=== PATIENT | female | born 1945 | race American Indian/Alaskan Native ===

== ENCOUNTER 2018-04-24 20:17 | Emergency (ER) | payer OTHER ==
--- OUTSIDE RECORDS SUMMARY | 2018-04-24 20:19 | XMS REPORT | Summary of Care ---
:1945 Author Name Rachel Price M.A. Address Unavailable Unavailable , Care Team Providers Name Role Phone Rachel Price M.A. Unavailable Unavailable Functional Status Name Dates Details Functional status health issues are not documented Status: Name Dates Details Cognitive status health issues are not documented Status: Problems Name Dates Details Arthritis of left hip (716.95, M16.12) Status: Active S/P right unicompartmental knee replacement (V43.65, Z96.651) Status: Active Right hip pain (719.45, M25.551) Status: Active Lumbar pain (724.2, M54.5) Status: Active Medications Name Dates Details Medications not documented Allergies and Adverse Reactions Name Dates Details Allergy history not documented Status: Procedures Procedure Dates Details Procedures not documented Immunization Name Dates Details Immunizations not documented Social History Name Dates Details Unknown if ever smoked Vital Signs Date Test Result Details No Known Vitals to report Results Date Description Value Details Results not documented Plan of Care Name Dates Details Planned Observations Planned Goals not documented Instructions Name Dates Details Instructions not documented Encounters Appointment; DONALD WHITESIDE M.D. On: 23-Sep-2017 8:30 Encounter Diagnosis: Problem not documented
[2018-04-24 20:59] LABS: Absolute Lymphocytes (CBC) 2.3 K/uL (0.7-4.9); Absolute Monocytes 0.7 K/uL (0.1-1.3); Absolute Neutrophil 5.1 K/uL (1.8-8.0); Basophils % 0.4 % (0-1.3); Eosinophils % 2.1 % (0-4.4); Hematocrit 41.8 % (36.0-45.0); Lymphocytes % 28.3 % (15.3-44.8); MPV 9.6 fL (7.6-11.3); Monocytes % 8.1 % (3.3-12.3); RBC Red Blood Cell Count 4.97 M/uL (3.86-4.86)
[2018-04-24 21:05] LABS: Protime INR 0.98
[2018-04-24 21:17] LABS: ALT/SGPT 31 U/L (12-78); AST/SGOT 20 U/L (15-37); Albumin 3.5 g/dL (3.4-5.0); Alkaline Phosphatase 128 U/L (45-117); BUN Blood Urea Nitrogen 14 mg/dL (7-18); Bicarbonate 24 mmol/L (21-32); Bilirubin Total 0.2 mg/dL (0.2-1.0); Glucose Level 131 mg/dL (74-106); Magnesium 2.2 mg/dL (1.8-2.4); NT PRO-BNP 99 pg/mL (<125); Potassium 3.9 mmol/L (3.5-5.1); Protein, Total 7.4 g/dL (6.4-8.2); Sodium Level 142 mmol/L (136-145); Troponin (Emerg Dept Use Only) < 0.02 ng/mL (0.0-0.045)
--- NOTE | 2018-04-24 21:37 | RAD REPORT ---
EXAM DESCRIPTION: [facility] Single View04/24/2018 9:11 pm CLINICAL HISTORY: Chest pain COMPARISON: none FINDINGS: The lung bases are hazy. Upper lobes appear clear. The heart is mildly enlarged IMPRESSION: Lung bases are hazy probably secondary to overlying soft tissue. Infiltrates can also aly ve this appearance. PA and lateral chest series would be helpful for further evaluation
[2018-04-25] MEDS ORDERED: MAGNE/ALUM HYDROXD 30 ML UCUP ONE (00:42)
[2018-04-25] MEDS ORDERED: MORPHINE 4 MG/ML SYR ONE (00:43)
[2018-04-25] MEDS ORDERED: LIDOCAINE VISCOUS 2% SOLN 15 ML UDC ONE (00:43)
[2018-04-25] MEDS ORDERED: ONDANSETRON 4 MG/2 ML VIAL ONE (00:43)
--- NOTE | 2018-04-25 00:58 | ER ---
Nurse's Notes [facility] Emergency Department Name: Sabas Chavez Age: 72 yrs Sex: Female : 1945 Arrival Date: 04/24/2018 Time: 20:20 Bed 5 Private MD: Diagnosis: Pain in right arm Presentation: 04/24 20:37 Presenting complaint: Patient states: "I am having right arm pain and swelling as well jd3 as indigestion.". Transition of care: patient was not received from another setting of care. Onset of symptoms was April 24, 2018. Risk Assessment: Do you want to hurt yourself or someone else? Patient reports no desire to harm self or others. Initial Sepsis Screen: Does the patient meet any 2 criteria? No. Patient's initial sepsis screen is negative. Does the patient have a suspected source of infection? No. Patient's initial sepsis screen is negative. Care prior to arrival: None. 20:37 Method Of Arrival: Ambulatory jd3 20:37 Acuity: BECKY 3 jd3 Historical: - Allergies: 20:41 No Known Allergies; jd3 - Home Meds: 20:41 omeprazole 40 mg Oral cpDR [Active]; Synthroid 50 mcg Oral tab [Active]; Vitamin D Oral jd3 [Active]; aspirin 81 mg Oral chew [Active]; Tradjenta 5 mg oral tab [Active]; atorvastatin 10 mg oral tab [Active]; ProAir HFA inhalation inhalation [Active]; lansoprazole 30 mg oral cpDR [Active]; Albuterol Inhl [Active]; - PMHx: 20:41 Thyroid problem; Diabetes - NIDDM; jd3 - PSHx: 20:41 Cholecystectomy; right knee; jd3 - Immunization history:: Adult Immunizations up to date. - Social history:: Smoking status: Patient/guardian denies using tobacco. - Ebola Screening: : Patient negative for fever greater than or equal to 101.5 degrees Fahrenheit, and additional compatible Ebola Virus Disease symptoms. Screenin:51 Abuse screen: Denies threats or abuse. Denies injuries from another. Nutritional aj screening: No deficits noted. Tuberculosis screening: No symptoms or risk factors identified. Fall Risk None identified. Assessment: 20:51 General: Appears in no apparent distress. comfortable, Behavior is calm, cooperative, aj appropriate for age. Pain: Complains of pain in anterior aspect of right upper chest and right arm. Neuro: Level of Consciousness is awake, alert, obeys commands, Oriented to person, place, time, situation, Appropriate for age. Respiratory: Airway is patent Respiratory effort is even, unlabored, Respiratory pattern is regular, symmetrical. Derm: Skin is intact, is healthy with good turgor, Skin is pink, warm \\T\\ dry. normal. Musculoskeletal: Reports pain in anterior aspect of right upper chest and right arm. 22:14 Reassessment: Patient appears in no apparent distress at this time. Patient and/or jd3 family updated on plan of care and expected duration. Pain level reassessed. Patient is alert, oriented x 3, equal unlabored respirations, skin warm/dry/pink. report received from Michelle GRIMM. 04/25 00:28 Reassessment: Patient appears in no apparent distress at this time. No changes from [facility] previously documented assessment. Patient and/or family updated on plan of care and expected duration. Pain level reassessed. Patient is alert, oriented x 3, equal unlabored respirations, skin warm/dry/pink. 01:22 Reassessment: Patient appears in no apparent distress at this time. Patient and/or jd3 family updated on plan of care and expected duration. Pain level reassessed. Patient is alert, oriented x 3, equal unlabored respirations, skin warm/dry/pink. Patient states feeling better. Vital Signs: 04/24 20:41 BP 157 / 77; Pulse 96; Resp 18 S; Temp 98.0(O); Pulse Ox 95% on R/A; Weight 83.01 kg j (R); Height 5 ft. 2 in. (157.48 cm) (R); Pain 8/10; 22:30 BP 135 / 73; Pulse 85; Resp 19 S; Pulse Ox 99% on R/A; jd3 04/25 00:29 BP 139 / 70; Pulse 72; Resp 17 S; Pulse Ox 97% on R/A; jd3 04/24 20:41 Body Mass Index 33.47 (83.01 kg, 157.48 cm) j ED Course: 04/24 20:20 Patient arrived in ED. ds1 20:24 Tomy Graham MD is Attending Physician. ps1 20:38 Triage completed. jd3 20:42 Arm band placed on. jd3 20:51 Michelle Ying, RN is Primary Nurse. aj 20:51 Patient has correct armband on for positive identification. Bed in low position. aj 20:51 Inserted saline lock: 22 gauge in left antecubital area, using aseptic technique. Blood aj collected. 21:11 XRAY Chest (1 view) In Process Unspecified. EDMS 22:00 CT completed. Patient moved to CT via stretcher. Patient moved back from CT. vm2 22:36 CT Chest For PE Angio In Process Unspecified. EDMS 23:45 Ultrasound completed. Patient tolerated well. Notified MACHINE PACK ASSEMBLER/PA robyn. sg3 23:46 US Extremity Venous Unilateral Ltd In Process Unspecified. EDMS 04/25 01:20 No provider procedures requiring assistance completed. IV discontinued, intact, jd3 bleeding controlled, No redness/swelling at site. Pressure dressing applied. Administered Medications: 00:41 Drug: GI Cocktail without - (Maalox Suspension 30 ml, Lidocaine Liquid 2 % 15 jd3 ml) Route: PO; 01:23 Follow up: Response: No adverse reaction jd3 00:43 Drug: morphine 4 mg Route: IVP; Site: right antecubital; jd3 01:23 Follow up: Response: No adverse reaction jd3 00:43 Drug: Zofran 4 mg Route: IVP; Site: right antecubital; jd3 01:23 Follow up: Response: No adverse reaction jd3 Outcome: 00:57 Discharge ordered by . ps1 01:21 Discharged to home ambulatory, with family. jd3 01:21 Condition: stable 01:21 Discharge instructions given to patient, family, Instructed on discharge instructions, follow up and referral plans. medication usage, Demonstrated understanding of instructions, follow-up care, medications, Prescriptions given X 4. 01:24 Patient left the ED. jd3 Signatures: Dispatcher [employer] EDOH Michelle Ying, Jojo Talbot RN dsSaray Fernandez 2 Mohsen Lu RN RN jd3 Singer, Phillip, MD MD ps1 Godinez, Sarah sg3 Corrections: (The following items were deleted from the chart) 00:44 00:29 BP 131 / 68; Pulse 72bpm; Resp 17bpm; Spontaneous; Pulse Ox 97% RA; jd3 jd3
--- NOTE | 2018-04-25 00:58 | EDPHYS ---
Physician Documentation [facility] Name: Sabas Chavez Age: 72 yrs Sex: Female : 1945 Arrival Date: 04/24/2018 Time: 20:20 Bed 5 Private MD: ED Physician Tomy Graham HPI: 04/24 21:13 This 72 yrs old Other Female presents to ER via Ambulatory with complaints of Arm Pain. ps1 21:13 patient onset this morning upon awakening. Atraumatic. States pain is described as dull ps1 and throbbing. Pain rated as moderate. Associated with reflux. No recent travel. Arm has some swelling. No chest pain. . Historical: - Allergies: 20:41 No Known Allergies; jd3 - Home Meds: 20:41 omeprazole 40 mg Oral cpDR [Active]; Synthroid 50 mcg Oral tab [Active]; Vitamin D Oral jd3 [Active]; aspirin 81 mg Oral chew [Active]; Tradjenta 5 mg oral tab [Active]; atorvastatin 10 mg oral tab [Active]; ProAir HFA inhalation inhalation [Active]; lansoprazole 30 mg oral cpDR [Active]; Albuterol Inhl [Active]; - PMHx: 20:41 Thyroid problem; Diabetes - NIDDM; jd3 - PSHx: 20:41 Cholecystectomy; right knee; jd3 - Immunization history:: Adult Immunizations up to date. - Social history:: Smoking status: Patient/guardian denies using tobacco. - Ebola Screening: : Patient negative for fever greater than or equal to 101.5 degrees Fahrenheit, and additional compatible Ebola Virus Disease symptoms. ROS: 21:23 Constitutional: Negative for fever, chills, and weight loss, Eyes: Negative for injury, ps1 pain, redness, and discharge, Cardiovascular: Negative for chest pain, palpitations, and edema, Respiratory: Negative for shortness of breath, cough, wheezing, and pleuritic chest pain, Skin: Negative for injury, rash, and discoloration, Neuro: Negative for headache, weakness, numbness, tingling, and seizure. 21:23 Abdomen/GI: Positive for reflux. 21:23 MS/extremity: Positive for pain, of the right arm and anterior aspect of right upper chest. Exam: 21:23 Constitutional: This is a well developed, well nourished patient who is awake, alert, ps1 and in no acute distress. Head/Face: Normocephalic, atraumatic. Eyes: Pupils equal round and reactive to light, extra-ocular motions intact. Lids and lashes normal. Conjunctiva and sclera are non-icteric and not injected. ENT: Nares patent. No nasal discharge, no septal abnormalities noted. Tympanic membranes are normal and external auditory canals are clear. Oropharynx with no redness, swelling, or masses, exudates, or evidence of obstruction, uvula midline. Mucous membranes moist. Cardiovascular: Regular rate and rhythm. No gallops, murmurs, or rubs. Normal PMI, no JVD. No pulse deficits. Respiratory: Lungs have equal breath sounds bilaterally, clear to auscultation and percussion. No rales, rhonchi or wheezes noted. No increased work of breathing, no retractions or nasal flaring. Abdomen/GI: Soft, non-tender, with normal bowel sounds. No distension or tympany. No guarding or rebound. No evidence of tenderness throughout. Skin: Warm, dry with normal turgor. Normal color with no rashes, no lesions, and no evidence of cellulitis. MS/ Extremity: Pulses equal, no cyanosis. Neurovascular intact. Full, normal range of motion. Neuro: Awake and alert, GCS 15, oriented to person, place, time, and situation. Cranial nerves II-XII grossly intact. Sensory grossly intact. Vital Signs: 20:41 BP 157 / 77; Pulse 96; Resp 18 S; Temp 98.0(O); Pulse Ox 95% on R/A; Weight 83.01 kg jd3 (R); Height 5 ft. 2 in. (157.48 cm) (R); Pain 8/10; 22:30 BP 135 / 73; Pulse 85; Resp 19 S; Pulse Ox 99% on R/A; jd3 04/25 00:29 BP 139 / 70; Pulse 72; Resp 17 S; Pulse Ox 97% on R/A; jd3 04/24 20:41 Body Mass Index 33.47 (83.01 kg, 157.48 cm) jd3 MDM: 04/24 20:34 Patient medically screened. ps1 04/25 01:06 Data reviewed: vital signs, nurses notes, lab test result(s), radiologic studies, CT ps1 scan, doppler, and as a result, I will discharge patient. Counseling: I had a detailed discussion with the patient and/or guardian regarding: the historical points, exam findings, and any diagnostic results supporting the discharge/admit diagnosis, lab results, radiology results, the need for outpatient follow up, with PCP. Medication response: morphine markedly relieved the patient's pain. Symptoms have improved. 04/24 20:34 Order name: CBC with Diff; Complete Time: 21:12 04/24 20:34 Order name: Magnesium; Complete Time: : ps1 04/24 20:34 Order name: NT PRO-BNP; Complete Time: :04/24 20:34 Order name: PT-INR; Complete Time: :04/24 20:34 Order name: Troponin (emerg Dept Use Only); Complete Time: : ps1 04/24 20:34 Order name: CMP; Complete Time: : [facility] 04/24 20:34 Order name: XRAY Chest (1 view); Complete Time: 21:56 ps1 04/24 20:34 Order name: EKG; Complete Time: 20:37 ps1 04/24 20:34 Order name: DD; Complete Time: :04/24 21:30 Order name: CT Chest For PE Angio 04/24 22:53 Order name: US Extremity Venous Unilateral Ltd 04/24 20:34 Order name: Cardiac monitoring; Complete Time: 20:54 ps1 04/24 20:34 Order name: EKG - Nurse/Tech; Complete Time: 20:54 ps1 04/24 20:34 Order name: IV Saline Lock; Complete Time: 20:55 [facility] 04/24 20:34 Order name: Labs collected and sent; Complete Time: 20:55 ps1 04/24 20:34 Order name: O2 Per Protocol; Complete Time: 20:55 [facility] 04/24 20:34 Order name: O2 Sat Monitoring; Complete Time: 20:55 ps1 EC/19 20:41 Rate is 88 beats/min. Rhythm is regular. QRS [place] is Normal. AL interval is normal. QRS ps1 interval is normal. QT interval is normal. No Q waves. T waves are Normal. No ST changes noted. Clinical impression: Normal ECG. Interpreted by me. Administered Medications: 04/25 00:41 Drug: GI Cocktail without - (Maalox Suspension 30 ml, Lidocaine Liquid 2 % 15 jd3 ml) Route: PO; 01:23 Follow up: Response: No adverse reaction jd3 00:43 Drug: morphine 4 mg Route: IVP; Site: right antecubital; jd3 01:23 Follow up: Response: No adverse reaction jd3 00:43 Drug: Zofran 4 mg Route: IVP; Site: right antecubital; jd3 01:23 Follow up: Response: No adverse reaction jd3 Disposition: 04/25/18 00:57 Discharged to Home. Impression: Pain in right arm. - Condition is Stable. - Discharge Instructions: Musculoskeletal Pain, Pain Without a Known Cause. - Prescriptions for Anaprox DS 550 mg Oral Tablet - take 1 tablet by ORAL route every 12 hours As needed; 20 tablet. Robaxin 500 mg Oral Tablet - take 2 tablet by ORAL route every 6 hours As needed; 40 tablet. Medrol (Peter) 4 mg Oral Tablets, Dose Pack - take 1 tablet by ORAL route as directed - follow package instructions; 1 packet. simethicone - take 180 milligram by ORAL route 4 times per day; 100 capsule. - Medication Reconciliation Form, Thank You Letter, Antibiotic Education, Prescription Opioid Use form. - Follow up: Private Physician; When: 48 Hours; Reason: Further diagnostic work-up, Recheck today's complaints, Continuance of care, Re-evaluation by your physician. Follow up: Emergency Department; When: As needed; Reason: Worsening of condition. - Problem is new. - Symptoms have improved. Signatures: Dispatcher [employer] Mohsen Silva RN RN jTomy Shelton MD MD ps1 Corrections: (The following items were deleted from the chart) 04/24 21:28 21:13 patient onset this morning upon awakening. Atraumatic. . ps1 ps1 04/25 01:24 00:57 04/25/2018 00:57 Discharged to Home. Impression: Pain in right arm. Condition is jd3 Stable. Forms are Medication Reconciliation Form, Thank You Letter, Antibiotic Education, Prescription Opioid Use. Follow up: Private Physician; When: 48 Hours; Reason: Further diagnostic work-up, Recheck today's complaints, Continuance of care, Re-evaluation by your physician. Follow up: Emergency Department; When: As needed; Reason: Worsening of condition. Problem is new. Symptoms have improved. ps1
--- NOTE | 2018-04-25 08:11 | RAD REPORT ---
EXAM DESCRIPTION: US - Extremity Venous Uni Ltd - 04/24/2018 11:46 pm CLINICAL HISTORY: Right arm pain and swelling COMPARISON: None. TECHNIQUE: Real-time sonographic evaluation of the right upper extremity deep venous systems was per formed. FINDINGS: Normal compressibility, flow augmentation, phasic flow and spontaneous flow are identified in the right upper extremity axillary, brachial deep venous system. Basilic and cephalic veins also clear. Deep veins of the wrist are clear. Internal jugular and subclavian veins are normal as well. IMPRESSION: No DVT in the right upper extremity.
--- NOTE | 2018-04-25 08:32 | RAD REPORT ---
EXAM DESCRIPTION: CT - Chest For Pe Angio - 04/24/2018 10:36 pm CLINICAL HISTORY: Right-sided chest pain, elevated D-dimer. A preliminary report was provided at the time of the study and reviewed prior to final report. COMPARISON: Chest films same date TECHNIQUE: Dynamically enhanced 3 mm thick images of the chest were obtained during administration o f approximately 150mL Isovue 370 IV contrast. Coronal and oblique MIP reconstruction images were gene rated and reviewed. Exam utilizes a protocol to evaluate the pulmonary arterial tree. All CT scans are performed using dose optimization technique as appropriate and may include automated exposure control or mA/KV adjustment according to patient size. FINDINGS: No pulmonary emboli are identified. The aorta as imaged shows no acute or suspicious finding. Minimal aortic calcifications are present. Patient has little identifiable coronary artery calcifications. No pericardial thickening or effusion . No focal mass or consolidation. Scarring and minimal atelectasis changes are present. Some minimal aly zy ground-glass opacities are present probably atelectasis rather than an acute infectious process. N o pleural effusion or pleural thickening. No mediastinal or hilar suspicious masses. No chest wall masses or abnormal axillary lymphadenopathy. Thoracic spine degenerative changes are present. No acute process suspected. IMPRESSION: No pulmonary emboli identified. No other significant or suspicious findings.Full findings detailed in the body of the report.
--- NOTE | 2018-04-26 11:48 | EKG ---
Test Date: 2018-04-24 Test Time: 20:41:33 Office Services Assistant: PATRICIA MEASUREMENT RESULTS: Intervals: Rate: 88 AR: 132 QRSD: 70 QT: 366 QTc: 442 [place]: P: 62 AR: 132 QRS: 53 T: 63 INTERPRETIVE STATEMENTS: Normal sinus rhythm Normal ECG No previous ECG available for comparison Electronically Signed On 04-26-18 11:43:18 INTERNATIONAL MARKETING COORDINATOR by Juan Luis Vicente
== END 2018-04-25 01:24 | disposition home or self-care (01) ==
LOC: ER 20:17
DX: M79.601 Pain in right arm (principal); E11.9 Type 2 diabetes mellitus without complications; E07.9 Disorder of thyroid, unspecified; Z79.82 Long term (current) use of aspirin
CPT/HCPCS: 36415; 71045; 71275; 80053; 83735; 83880; 84484; 85025; 85379; 85610; 93005; 93971; J2405; Q9967

== ENCOUNTER 2018-04-27 16:32 | Emergency (ER) | payer OTHER ==
[2018-04-27] MEDS ORDERED: KETOROLAC 30 MG/ML INJ ONE (17:12)
--- NOTE | 2018-04-27 17:34 | EDPHYS ---
Physician Documentation [facility] Name: Sabas Chavez Age: 72 yrs Sex: Female : 1945 Arrival Date: 04/27/2018 Time: 16:36 Bed 25 Private MD: ED Physician Bandar Turpin HPI: 04/27 17:15 This 72 yrs old Other Female presents to ER via Ambulatory with complaints of Arm Pain. snw 17:15 The patient or guardian complains of pain, that is acute. The complaints affect the snw right anterior neck with radiation down right arm. Context: The problem was sustained at home, resulted from unknown cause. Onset: The symptoms/episode began/occurred 4 day(s) ago, and became persistent. Treatment prior to arrival includes: seen in this ED 2 days ago, pain medications and muscle relaxers have helped minimally. Modifying factors: The symptoms are alleviated by nothing. Associated signs and symptoms: The patient has no apparent associated signs or symptoms. Severity of symptoms: At their worst the symptoms were moderate, in the emergency department the symptoms are unchanged. It is unknown whether or not the patient has had similar symptoms in the past. The patient has been recently seen at the [facility] Emergency Department, this week, for similar complaints labs were performed, X-rays were performed, an ultrasound was performed, was given a prescription for pain medications. Historical: - Allergies: 16:46 No Known Allergies; ph - PMHx: 16:46 Diabetes - NIDDM; Thyroid problem; ph - PSHx: 16:46 Cholecystectomy; right knee; ph - Immunization history:: Adult Immunizations unknown. - Social history:: Smoking status: Patient/guardian denies using tobacco, never smoked. - Ebola Screening: : No symptoms or risks identified at this time. ROS: 17:15 Constitutional: Negative for fever, chills, and weight loss, Eyes: Negative for injury, snw pain, redness, and discharge, ENT: Negative for injury, pain, and discharge, Neck: Negative for injury, pain, and swelling, Cardiovascular: Negative for chest pain, palpitations, and edema, Respiratory: Negative for shortness of breath, cough, wheezing, and pleuritic chest pain, Abdomen/GI: Negative for abdominal pain, nausea, vomiting, diarrhea, and constipation, excess gas for "15-20 years" Back: Negative for injury and pain, : Negative for injury, bleeding, discharge, and swelling, MS/Extremity: Negative for injury and deformity, Skin: Negative for injury, rash, and discoloration, Neuro: Negative for headache, weakness, numbness, tingling, and seizure. Exam: 17:13 Constitutional: This is a well developed, well nourished patient who is awake, alert, snw and in no acute distress. Head/Face: Normocephalic, atraumatic. Eyes: Pupils equal round and reactive to light, extra-ocular motions intact. Lids and lashes normal. Conjunctiva and sclera are non-icteric and not injected. Cornea within normal limits. Periorbital areas with no swelling, redness, or edema. ENT: Nares patent. No nasal discharge, no septal abnormalities noted. Tympanic membranes are normal and external auditory canals are clear. Oropharynx with no redness, swelling, or masses, exudates, or evidence of obstruction, uvula midline. Mucous membranes moist. Neck: Trachea midline, no thyromegaly or masses palpated, and no cervical lymphadenopathy. Supple, full range of motion without nuchal rigidity, or vertebral point tenderness. No Meningismus. Chest/axilla: Normal chest wall appearance and motion. Nontender with no deformity. No lesions are appreciated. Cardiovascular: Regular rate and rhythm with a normal S1 and S2. No gallops, murmurs, or rubs. Normal PMI, no JVD. No pulse deficits. Respiratory: Lungs have equal breath sounds bilaterally, clear to auscultation and percussion. No rales, rhonchi or wheezes noted. No increased work of breathing, no retractions or nasal flaring. 17:13 Back: No spinal tenderness. No costovertebral tenderness. Full range of motion. Skin: Warm, dry with normal turgor. Normal color with no rashes, no lesions, and no evidence of cellulitis. MS/ Extremity: Pulses equal, no cyanosis. Neurovascular intact. Full, normal range of motion. Neuro: Awake and alert, GCS 15, oriented to person, place, time, and situation. Cranial nerves II-XII grossly intact. Motor strength 5/5 in all extremities. Sensory grossly intact. Cerebellar exam normal. Normal gait. 17:13 Neck: External neck: tenderness, that is mild, of the right posterior aspect of neck, right lateral aspect of neck and right anterior aspect of neck. 17:13 Abdomen/GI: Inspection: abdomen appears normal, Bowel sounds: normal, Palpation: abdomen is soft and non-tender. Vital Signs: 16:46 BP 147 / 67; Pulse 79; Resp 18; Temp 97.3; Pulse Ox 96% on R/A; ph MDM: 16:49 Patient medically screened. snw 17:34 Data reviewed: vital signs, nurses notes. Data interpreted: Pulse oximetry: on room air snw is 96 %. Interpretation: acceptable. Counseling: I had a detailed discussion with the patient and/or guardian regarding: the historical points, exam findings, and any diagnostic results supporting the discharge/admit diagnosis, the presence of at least one elevated blood pressure reading (>120/80) during this emergency department visit, radiology results, the need for outpatient follow up, to return to the emergency department if symptoms worsen or persist or if there are any questions or concerns that arise at home. Special discussion: I have referred the patient to see his PCP for further evaluation of high blood pressure. Based on the history and exam findings, there is no indication for further emergent testing or inpatient evaluation. I discussed with the patient/guardian the need to see the pool installer for further evaluation of the symptoms. I discussed with the patient/guardian the need to see the primary care provider for further evaluation of the symptoms. 04/27 16:47 Order name: Carotid Artery Bilateral US; Complete Time: 17:55 snw Administered Medications: 17:02 Drug: TORadol 30 mg Route: IM; Site: right deltoid; ls4 17:24 Follow up: Response: No adverse reaction; Marked relief of symptoms ls4 Disposition: 17:55 Co-signature as Attending Physician, Bandar Turpin MD. rn Disposition: 04/27/18 17:33 Discharged to Home. Impression: Pain in arm, unspecified, Radiculopathy, cervical region. - Condition is Stable. - Discharge Instructions: Cervical Radiculopathy, Musculoskeletal Pain, Cervical Sprain, Cryotherapy, Heat Therapy, Radicular Pain. - Medication Reconciliation Form, Thank You Letter, Antibiotic Education, Prescription Opioid Use form. - Follow up: Private Physician; When: 2 - 3 days; Reason: Recheck today's complaints, Continuance of care, Re-evaluation by your physician. Follow up: Emergency Department; When: As needed; Reason: Worsening of condition. Signatures: Dispatcher [employer] EDMS Agnes Petersen, ROLLER PRINTER-C ROLLER PRINTER-Csnw Bandar Turpin MD MD rn Lay Martinez RN RN Violette Bran RN RN ls4 Corrections: (The following items were deleted from the chart) 17:55 17:33 04/27/2018 17:33 Discharged to Home. Impression: Pain in arm, unspecified; ls4 Radiculopathy, cervical region. Condition is Stable. Forms are Medication Reconciliation Form, Thank You Letter, Antibiotic Education, Prescription Opioid Use. Follow up: Private Physician; When: 2 - 3 days; Reason: Recheck today's complaints, Continuance of care, Re-evaluation by your physician. Follow up: Emergency Department; When: As needed; Reason: Worsening of condition. snw
--- NOTE | 2018-04-27 17:34 | ER ---
Nurse's Notes [facility] Name: Sabas Chavez Age: 72 yrs Sex: Female : 1945 Arrival Date: 04/27/2018 Time: 16:36 Bed 25 Private MD: Diagnosis: Pain in arm, unspecified;Radiculopathy, cervical region Presentation: 04/27 16:44 Presenting complaint: Patient states: R arm pain that radiates to neck and hand, ph tingling in fingers, seen in ED for same complaint and sent home w/ muscle relaxers, states, " The pain has only gotten a little better.". Transition of care: patient was not received from another setting of care. Onset of symptoms was April 27, 2018. Risk Assessment: Do you want to hurt yourself or someone else? Patient reports no desire to harm self or others. Initial Sepsis Screen: Does the patient meet any 2 criteria? No. Patient's initial sepsis screen is negative. Does the patient have a suspected source of infection? No. Patient's initial sepsis screen is negative. Care prior to arrival: None. 16:44 Method Of Arrival: Ambulatory ph 16:44 Acuity: BECKY 4 ph Triage Assessment: 17:01 General: Behavior is calm, cooperative. ls4 17:01 Neuro: No deficits noted. Cardiovascular: No deficits noted. Respiratory: No deficits ls4 noted. GI: No deficits noted. Historical: - Allergies: 16:46 No Known Allergies; ph - PMHx: 16:46 Diabetes - NIDDM; Thyroid problem; ph - PSHx: 16:46 Cholecystectomy; right knee; ph - Immunization history:: Adult Immunizations unknown. - Social history:: Smoking status: Patient/guardian denies using tobacco, never smoked. - Ebola Screening: : No symptoms or risks identified at this time. Screenin:00 Abuse screen: Denies threats or abuse. Denies injuries from another. ls4 16:00 Nutritional screening: No deficits noted. Tuberculosis screening: No symptoms or risk ls4 factors identified. Fall Risk None identified. Assessment: 16:45 General: Appears in no apparent distress. ls4 16:45 Pain: Complains of pain in left anterior aspect of neck and left lateral aspect of neck ls4 and left posterior aspect of neck Pain currently is 5 out of 10 on a pain scale. Neuro: No deficits noted. Cardiovascular: No deficits noted. Respiratory: No deficits noted. : No deficits noted. Derm: No deficits noted. Musculoskeletal: No deficits noted. Vital Signs: 16:46 BP 147 / 67; Pulse 79; Resp 18; Temp 97.3; Pulse Ox 96% on R/A; ph ED Course: 16:00 Placed in gown. Bed in low position. Call light in reach. Side rails up X 1. ls4 16:00 No provider procedures requiring assistance completed. Patient did not have IV access ls4 during this emergency room visit. 16:36 Patient arrived in ED. mr 16:43 Violette Smith, RN is Primary Nurse. ls4 16:46 Triage completed. ph 16:46 Agnes Petersen FNP-C [facility]. snw 16:46 Bandar Turpin MD is Attending Physician. snw 16:47 Arm band placed on Patient placed in an exam room. ph 17:37 Carotid Artery Bilateral US In Process Unspecified. EDMS Administered Medications: 17:02 Drug: TORadol 30 mg Route: IM; Site: right deltoid; ls4 17:24 Follow up: Response: No adverse reaction; Marked relief of symptoms ls4 Outcome: 17:33 Discharge ordered by . snw 17:55 Patient left the ED. ls4 Signatures: Dispatcher [employer] EDMS Agnes Petersen FNP-C FNP-Dania MoralesMary mr MartinezLay, RN RN ph Violette Smith, RN RN ls4
--- NOTE | 2018-04-27 17:51 | RAD REPORT ---
EXAM DESCRIPTION: USCarotid Artery Bilateral04/27/2018 5:36 pm CLINICAL HISTORY: Carotid disease COMPARISON: None FINDINGS: The velocity of the right internal carotid artery equals 81 cm/sec. The right ICA/CCA rati o 1.3 The velocity of the left internal carotid artery equals 60 cm/sec. The left ICA/CCA ratio 1 Minimal plaque is present within the carotid arteries. The vertebral arteries demonstrate antegrade flow IMPRESSION: Minimal plaque within the carotid arteries without evidence of a hemodynamically signifi cant stenosis NASCET criteria used. Mild 0-49% stenosis Moderate 50-69% stenosis Severe 70-99% stenosis
== END 2018-04-27 17:55 | disposition home or self-care (01) ==
LOC: ER 16:32
DX: M79.601 Pain in right arm (principal); M54.12 Radiculopathy, cervical region
CPT/HCPCS: 93880; 96372; 99283